=== PATIENT | male | born 1975 | race Two or more races ===

== ENCOUNTER 2019-12-20 18:23 | Emergency (ER) | payer OTHER ==
[2019-12-20 18:33] VITALS: BP 138/78; PULSE 84; TEMP 98; BMI 37.5
[2019-12-20] MEDS ORDERED: METOCLOPRAMIDE HCL INJECTION 10 MG/2 ML VIAL IVPUSH ONE (19:25)
[2019-12-20] MEDS ORDERED: METOCLOPRAMIDE HCL INJECTION 10 MG/2 ML VIAL ONE (19:49)
[2019-12-20 20:00] LABS: BASO % 1.9 % (0-2.0); EOS % 1.4 % (0-4.5); HEMATOCRIT 44.9 % (35.4-49); HEMOGLOBIN 14.7 GM/dl (11.7-16.9); LYMPH % 23.5 % (8-40); MCH 27.8 pg (25.7-33.7); MCHC 32.6 g/dl (32.0-35.9); MEAN CELL VOLUME 85.3 fl (80-96); MEAN PLT VOLUME 9.3 fl (7.5-11.1); MONO % 6.3 % (3.8-10.2); NEUT % 66.9 % (42.8-82.8); PLATELET COUNT 293 K/MM3 (134-434); RBC 5.27 M/mm3 (4.00-5.60); RDW 14.5 % (11.9-15.9); WHITE BLOOD COUNT 9.5 K/mm3 (4.0-10.8)
[2019-12-20 20:10] LABS: ACTIVATED PTT 29.9 SECONDS (25.2-36.5)
[2019-12-20 20:12] LABS: ALBUMIN 3.9 g/dl (3.4-5.0); BILIRUBIN,TOTAL 0.5 mg/dl (0.2-1); CALCIUM 9.2 mg/dl (8.5-10); POTASSIUM 3.5 mmol/L (3.5-5.1)
[2019-12-20 20:14] LABS: INR 1.11 (0.82-1.09); PROTHROMBIN TIME (PATIENT) 12.4 SEC (10.2-13.0)
--- NOTE | 2019-12-20 21:09 | PDOC ---
Documentation entered by Óscar Bustillos SCRIBE, acting as scribe for Nancy Allan MD. Nancy Allan MD: This documentation has been prepared by the Apollo wu Angel, SCRIBE, under my direction and personally reviewed by me in its entirety. I confirm that the documentation accurately reflects all work, treatment, procedures, and medical decision making performed by me. History of Present Illness - General Chief Complaint: Headache Stated Complaint: HEADACHE FOR 2 DAYS Time Seen by Provider: 12/20/19 19:17 History Source: Patient Exam Limitations: No Limitations - History of Present Illness Initial Comments: 12/20/19 19:38 The patient is a 44 year old male with a significant past medical history of HTN , chronic neck pain and DM who presents to the ED with a head since yesterday morning. Patient states yesterday morning he woke up with a headache describing it as a 9 out of 10 in pain. Patient reports he took tylenol but had no relief. Patient states he has a history of getting headaches but this is the worst one yet. Patient denies any fever/chills or any other symptoms. Past History - Travel Traveled outside of the country in the last 30 days: No Close contact w/someone who was outside of country & ill: No - Past Medical History Allergies/Adverse Reactions: Allergies Allergy/AdvReac Type Severity Reaction Status Date / Time No Known Allergies Allergy Verified 12/20/19 18:27 Home Medications: Ambulatory Orders NK [No Known Home Medication] 12/20/19 Anemia: No Asthma: No Cancer: No Cardiac Disorders: No CVA: No COPD: No CHF: No Dementia: No Diabetes: Yes (borderline) GI Disorders: No Disorders: No HTN: Yes Hypercholesterolemia: Yes Liver Disease: No Seizures: No Thyroid Disease: No - Surgical History Abdominal Surgery: No Appendectomy: No Cardiac Surgery: No Cholecystectomy: No Lung Surgery: No Neurologic Surgery: No Orthopedic Surgery: No - Immunization History Immunization Up to Date: Yes - Psycho Social/Smoking Cessation Hx Smoking Status: Yes Smoking History: Never smoked Have you smoked in the past 12 months: Yes Number of Cigarettes Smoked Daily: 5 If you are a former smoker, when did you quit?: 4 months Information on smoking cessation initiated: No 'Breaking Loose' booklet given: 01/02/13 Hx Alcohol Use: No Drug/Substance Use Hx: No Substance Use Type: None Hx Substance Use Treatment: No Review of Systems - Review of Systems Able to Perform ROS?: Yes Comments:: 12/20/19 19:41 CONSTITUTIONAL: Absent: fever, no chills, no fatigue EYES: Absent: visual changes ENT: Absent: ear pain, no sore throat CARDIOVASCULAR: Absent: chest pain, no palpitations RESPIRATORY: Absent: cough, no SOB GI: Absent: +Nausea. abdominal pain, no vomiting, no constipation, no diarrhea GENITOURINARY: Absent: dysuria, no frequency, no hematuria MUSKULOSKELETAL: Absent: back pain, no arthralgia, no myalgia SKIN: Absent: rash NEURO: Absent: +Headache. *Physical Exam - Vital Signs Last Vital Signs Temp Pulse Resp BP Pulse Ox 98 F 84 16 138/78 98 12/20/19 18:26 12/20/19 18:26 12/20/19 18:26 12/20/19 18:26 12/20/19 18:26 - Physical Exam 12/20/19 19:41 GENERAL: Well-appearing, well-nourished. No apparent distress. HEENT: Normocephalic, atraumatic. PERRL, EOM intact. CARDIOVASCULAR: Normal S1, S2. Regular rate and rhythm. PULMONARY: Clear to auscultation bilaterally. ABDOMEN: Soft, non-distended, non-tender. EXTREMITIES: Normal ROM in all four extremities. No gross deformities. SKIN: Warm, dry. No rash NEUROLOGICAL: No focal neurological deficits. ED Treatment Course - LABORATORY CBC & Chemistry Diagram: 12/20/19 19:45 12/20/19 19:47 - ADDITIONAL ORDERS Additional order review: Laboratory Results 12/20/19 12/20/19 19:47 19:45 PT with INR 12.4 INR 1.11 PTT (Actin FS) 29.9 Sodium 134 L Potassium 3.5 Chloride 99 Carbon Dioxide 28 Anion Gap 7 L BUN 18.0 Creatinine 1.0 Est GFR (CKD-EPI)AfAm 107.12 Est GFR (CKD-EPI)NonAf 92.42 Random Glucose 164 H Calcium 9.2 Total Bilirubin 0.5 AST 28 ALT 38 Alkaline Phosphatase 43 L Total Protein 7.0 Albumin 3.9 12/20/19 19:45 RBC 5.27 MCV 85.3 MCHC 32.6 RDW 14.5 MPV 9.3 Neutrophils % 66.9 Lymphocytes % 23.5 Monocytes % 6.3 Eosinophils % 1.4 Basophils % 1.9 - RADIOLOGY Radiology Studies Ordered: Category Date Time Status BRAIN CTA [CT] Stat CT Scan 12/20/19 19:[address] WITHOUT CONTRAST [CT] Stat CT Scan 12/20/19 19:23 Completed - Medications Given in the ED: ED Medications Discontinued Medications Generic Name Dose Route Start Last Admin Trade Name Max PRN Reason Stop Dose Admin Diphenhydramine HCl 50 mg 12/20/19 19:25 12/20/19 19:50 Benadryl Injection - IVPUSH 12/20/19 19:26 50 mg ONCE ONE Administration Metoclopramide HCl 10 mg 12/20/19 19:25 12/20/19 19:56 Reglan Injection - IVPUSH 12/20/19 19:26 10 mg ONCE ONE Administration Medical Decision Making - Medical Decision Making 12/20/19 21:03 Pt presents to the ED complaining of a two day history of headache. Patient is extremely well appearing, but given his statements that the pain was sudden onset and severe, SAH cannot be excluded. Will check CT head and CTA. Will discharge home if no blood or annuerysm on CT. Patient feels improved after reglan and benadryl. 12/20/19 21:59 Ct head and CTA are normal. Patient was sleeping comfortably. When awakened, he stated that his headache was improved but not gone. Headache is most likely migraine or tension headache given normal radiologic findings. Will treat with toradol and discharge home with instructions to return to the ED for worsening symptoms. Discharge - Discharge Information Problems reviewed: Yes Clinical Impression/Diagnosis: Headache Qualifiers: Headache type: unspecified Headache chronicity pattern: acute headache Intractability: not intractable Qualified Code(s): R51 - Headache Condition: Good Disposition: HOME - Admission No - Follow up/Referral - Patient Discharge Instructions Patient Printed Discharge Instructions: DI for Headache Additional Instructions: you came to the ED for headache. We did a cat scan of the brain to look for bleeding and a Ct angiogram to look for problems with the blood vessels, both of which were normal. You can take tylenol or motrin for the headache. You should return to the ED for severe or worsening headache, changes in your vision , seizures or passing out, other new or worsening symptoms. Follow up with your doctor within three days. - Post Discharge Activity
[2019-12-20] MEDS ORDERED: KETOROLAC TROMETHAMINE 30 MG/1 ML VIAL IVPUSH ONE (21:59)
[2019-12-20] MEDS ORDERED: KETOROLAC TROMETHAMINE 30 MG/1 ML VIAL ONE (22:04)
== END 2019-12-20 22:10 | disposition home or self-care (01) ==
LOC: FER 18:23
PROC: 3E033GC Introduction of Other Therapeutic Substance into Peripheral Vein, Percutaneous Approach (ICD-10-PCS; principal; 2019-12-20)
PROC: 3E0333Z Introduction of Anti-inflammatory into Peripheral Vein, Percutaneous Approach (ICD-10-PCS; 2019-12-20)
DX: R51 Headache (principal); Z87.891 Personal history of nicotine dependence
CPT/HCPCS: 36415; 70450-TC; 70496-TC; 80053; 85025; 85610; 85730; 96374; 96375; 99285-25; Q9967

== ENCOUNTER 2022-03-27 14:52 | Emergency (ER) | payer OTHER ==
[2022-03-27 15:35] VITALS: BP 133/89; PULSE 78; TEMP 98.2; BMI 34.0
[2022-03-27 16:25] LABS: BILIRUBIN,TOTAL 0.7 mg/dl (0.2-1); CALCIUM 9.2 mg/dl (8.5-10); CREATININE 0.9 mg/dl (0.55-1.3); TOT PROT 6.5 g/dl (6.4-8.2); URIC ACID 6.7 mg/dl (2.6-7.2)
[2022-03-27 16:29] LABS: HEMATOCRIT 45.4 % (35.4-49); HEMOGLOBIN 15.8 G/dL (11.7-16.9); MCHC 34.9 g/dl (32.0-35.9); MEAN CELL VOLUME 83.1 fl (80-96); PLATELET COUNT 309.1 10^3/uL (134-434); RBC 5.46 10^6/uL (4.00-5.60); RDW 16.4 % (11.9-15.9)
[2022-03-27 16:53] LABS: ANISOCYTOSIS FEW
[2022-03-27 16:54] LABS: PLATELET ESTIMATE ADEQUATE
== END 2022-03-27 17:28 | disposition home or self-care (01) ==
LOC: FER 14:52
DX: M76.61 Achilles tendinitis, right leg (principal)
CPT/HCPCS: 36415; 73610-TC-RT-FY; 80053; 84550; 85025; 99284-25